=== PATIENT | male | born 1955 | race Caucasian/White ===

== ENCOUNTER 2018-11-03 08:21 | Emergency (ER) | payer BC ==
[~2018-11-03] VITALS: Ht 172.7 cm; Wt 83.8 kg
[2018-11-03] MEDS ORDERED: ECOT81TA5 PO (08:34)
[2018-11-03] MEDS ORDERED: VITA200016 PO (08:34)
[2018-11-03 08:57] LABS: BASO # 0.1 10^3/uL (0.0-0.2); BASO % 0.4 % (0.0-1.0); EOS % 0.2 % (0.0-3.0); HEMATOCRIT 42.6 % (42.0-52.0); HEMOGLOBIN 14.7 g/dl (13.5-17.5); LYMPH # 1.5 10^3/uL (1.5-4.5); LYMPH % 8.8 % (24.0-44.0); MEAN CORPUSCULAR HEMOGLOBIN 31.5 pg (27.0-33.0); MEAN CORPUSCULAR HGB CONC 34.5 g/dl (32.0-36.5); MEAN CORPUSCULAR VOLUME 91.2 fl (80.0-96.0); MONO # 0.8 10^3/uL (0.0-0.8); MONO % 4.9 % (0.0-5.0); NEUTROPHILS # 13.8 10^3/uL (1.8-7.7); NEUTROPHILS % 83.3 % (36.0-66.0); PLATELET COUNT, AUTOMATED 274 10^3/uL (150-450); RED BLOOD COUNT 4.67 10^6/uL (4.30-6.10); WHITE BLOOD COUNT 16.5 10^3/uL (4.0-10.0)
[2018-11-03] MEDS ORDERED: HEPARIN DRIP 25,000 UNITS in APPROPRIATE DILUENT 1 EA IV SCH (09:15)
[2018-11-03] MEDS ORDERED: FAMOTIDINE 20 MG TAB PO ONE (09:15)
[2018-11-03] MEDS ORDERED: ASPIRIN 81 MG CHEW TABLET PO ONE (09:15)
[2018-11-03] MEDS ORDERED: HEPARIN SOD (PORCINE) 5000 UNITS/ML VIAL IV ONE (09:15)
[2018-11-03] MEDS ORDERED: CLOPIDOGREL 300 MG TAB (PLAVIX) PO ONE (09:15)
[2018-11-03 09:30] LABS: ALBUMIN 3.3 GM/DL (3.2-5.2); ALT/SGPT 26 U/L (12-78); BILIRUBIN,DIRECT < 0.1 MG/DL (0.0-0.2); BILIRUBIN,TOTAL 0.4 MG/DL (0.2-1.0); BLOOD UREA NITROGEN 25 MG/DL (7-18); CALCIUM LEVEL 8.8 MG/DL (8.8-10.2); CARBON DIOXIDE LEVEL 21 MEQ/L (21-32); CHLORIDE LEVEL 110 MEQ/L (98-107); CPK CREATINE PHOSPHOKINASE 643 U/L (39-308); CREATININE FOR GFR 1.38 MG/DL (0.70-1.30); GLOMERULAR FILTRATION RATE 55.6 (>49); GLUCOSE, FASTING 132 MG/DL (70-100); MB/CK RELATIVE INDEX 10.34 (< OR =4); NT-PRO BNP 17311 PG/ML (<125); POTASSIUM SERUM 4.7 MEQ/L (3.5-5.1); SODIUM LEVEL 141 MEQ/L (136-145); TOTAL PROTEIN 6.7 GM/DL (6.4-8.2)
[2018-11-03 09:57] LABS: INR 1.08; PROTHROMBIN TIME 14.2 SECONDS (12.1-14.4)
[2018-11-03 10:21] LABS: PARTIAL THROMBOPLASTIN TIME 26.9 SECONDS (25.4-37.6)
--- NOTE | 2018-11-03 11:16 | REP ---
CHEST, PORTABLE: AP portable view of the chest is performed. I have no prior study for comparison. There is mild cardiomegaly. There is vascular congestion with diffuse interstitial edema. Mediastinal silhouette is grossly unremarkable. IMPRESSION: Mild cardiomegaly. Vascular congestion and interstitial edema, most consistent with CHF. Electronically Signed by Jay Garcia MD 11/03/2018 01:55 P
[2018-11-03 12:01] VITALS: BP 119/56
--- NOTE | 2018-11-04 06:30 | ECGEPIP ---
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
== END 2018-11-03 12:04 | disposition short-term general hospital (02) ==
LOC: EDBD 08:21 → M ED 08:21
DX: I21.4 Non-ST elevation (NSTEMI) myocardial infarction (principal); I50.9 Heart failure, unspecified; I25.10 Atherosclerotic heart disease of native coronary artery without angina pectoris; F17.210 Nicotine dependence, cigarettes, uncomplicated; Z79.82 Long term (current) use of aspirin; Z79.899 Other long term (current) drug therapy